=== PATIENT | male | born 1960 | race Caucasian/White ===

== ENCOUNTER 2016-10-19 14:03 | Emergency (ER) | payer OTHER ==
[~2016-10-19] VITALS: Ht 180.3 cm; Wt 101.0 kg
[~2016-10-19 14:03] MED LIST: AMITRIPTYLINE H25 MG PO; ASPIR-LOW81 MG PO; BUPROPION HCL150 M2 PO; FISH OIL 1,0001 EAC7 PO; FISH OIL PO; KEFLEX250 MG PO; MOBIC7.5 MG PO; PERCOCET 10/1 TABLET PO; PRAVACHOL40 MG PO; WELLBUTRIN SR150 MG PO; WELLBUTRIN XL300 MG PO; ZANTAC150 MG PO
[2016-10-19 14:07] VITALS: BP 131/83
[2016-10-19] MEDS ORDERED: PREDNISONE50 MG PO (14:26)
[2016-10-19] MEDS ORDERED: FLEXERIL5 MG PO (14:26)
== END 2016-10-19 14:47 | disposition home or self-care (01) ==
LOC: EME 14:03
DX: M54.12 Radiculopathy, cervical region (principal); E11.9 Type 2 diabetes mellitus without complications; Z79.84 Long term (current) use of oral hypoglycemic drugs; E78.5 Hyperlipidemia, unspecified; F17.200 Nicotine dependence, unspecified, uncomplicated; Z88.6 Allergy status to analgesic agent
CPT/HCPCS: 99281; 99284